=== PATIENT | female | born 1980 | race Caucasian/White ===

== ENCOUNTER 2016-11-15 17:17 | Emergency (ER) | payer BC, OTHER ==
[~2016-11-15] VITALS: Ht 165.1 cm; Wt 49.9 kg
[2016-11-15 17:45] VITALS: BP 118/69; PULSE 83; RESP 15; TEMP 97.9; O2SAT 98
[2016-11-15] MEDS ORDERED: ACETAMINOPHEN 500 MG TABLET PO ONE (18:00)
[2016-11-15 19:35] VITALS: BP 118/69; PULSE 83; RESP 15; TEMP 97.9; O2SAT 98
== END 2016-11-15 19:35 | disposition home or self-care (01) ==
LOC: SED 17:17
DX: S09.90XA Unspecified injury of head, initial encounter (principal); Y04.0XXA Assault by unarmed brawl or fight, initial encounter; Y93.89 Activity, other specified; Y92.89 Other specified places as the place of occurrence of the external cause; Y99.8 Other external cause status
CPT/HCPCS: 70450-TC; 81025; 99284

== ENCOUNTER 2020-07-12 10:38 | Emergency (ER) | payer BC, OTHER ==
[~2020-07-12] VITALS: Ht 165.1 cm; Wt 52.2 kg
[2020-07-12 10:54] VITALS: BP_SYST 107
--- NOTE | 2020-07-12 10:55 | NUR ---
pt to room 8 and placed in [facility]. C/O severe lower back pain.
--- NOTE | 2020-07-12 10:58 | NUR ---
ER at bedside examining patient.
[2020-07-12] MEDS ORDERED: MORPHINE 2 MG/ML INJ. SYRINGE IVP ONE (11:15)
[2020-07-12] MEDS ORDERED: KETAMINE 30 MG/3 ML SYRINGE 15 MG in NS 100 ML IV ONE (11:15)
--- NOTE | 2020-07-12 11:28 | NUR ---
Pt in severe pain. New order started. Ketamine IV. VSS
[2020-07-12] MEDS ORDERED: KETAMINE 30 MG/3 ML SYRINGE ONE (11:31)
--- NOTE | 2020-07-12 12:36 | NUR ---
Pt in [place] alert and oriented. No acute distress noted. VSS
[2020-07-12 13:15] VITALS: BP_SYST 118
--- NOTE | 2020-07-12 13:15 | NUR ---
Patient given written and verbal discharge instructions and verbalizes understanding. ER MD discussed with patient the results and treatment provided. Patient in stable condition. ID arm band removed. IV catheter removed intact and dressing applied, no active bleeding. Rx of Naproxen and Percocet given. Patient educated on pain management and to follow up with PMD. Pain Scale 2/10 tolerable for patient . Opportunity for questions provided and answered. Medication side effect fact sheet provided.
== END 2020-07-12 13:15 | disposition home or self-care (01) ==
LOC: SED 10:38
DX: M54.5 Low back pain (principal)
CPT/HCPCS: 96365; 96375; 99284; J2270